=== PATIENT | male | born 1950 | race Caucasian/White ===

== ENCOUNTER 2020-10-22 15:46 | Emergency (ER) | payer MEDICARE, OTHER ==
[~2020-10-22 15:46] MED LIST: HYTRIN1 MG PO; POTASSIUM CHLO10 MEQ PO; TAMSULOSIN HCL0.4 MG PO; ZESTORETIC 20-1 EAC1 PO
[2020-10-22 16:25] LABS: BASOPHIL 0.6 % (0-2); EOSINOPHIL 5.8 % (0-7); HCT 40.3 % (42.0-52.0); HGB 13.8 g/dl (13.2-18.0); LYMPHOCYTE 23.7 % (15-48); MCH 30.4 pg (25.0-31.0); MCHC 34.2 g/dL (32.0-36.0); MCV 88.8 fL (78.0-100.0); MONOCYTE 9.1 % (0-12); MPV 9.5 fL (6.0-9.5); NEUTROPHIL 60.5 % (41-80); NRBC 0; PLT 167 K/uL (150-400); RBC 4.54 M/uL (4.70-6.00); RDW 13.4 % (11.5-14.0); WBC 6.6 K/uL (4.0-10.5)
[2020-10-22 16:32] LABS: ALBUMIN 3.7 g/dL (3.4-5.0); BILIRUBIN - TOTAL 0.7 mg/dL (0.2-1.0); BUN/CREAT RATIO (CALC) 18.8 RATIO; CREATININE 1.12 mg/dL (0.67-1.17); GLOBULIN (CALCULATION) 4.2 g/dL; POTASSIUM 3.7 mmol/L (3.5-5.1); TOTAL PROTEIN 7.9 g/dL (6.4-8.2)
[2020-10-22] MEDS ORDERED: PEPCID AC20 MG PO (18:19)
== END 2020-10-22 18:35 | disposition home or self-care (01) ==
LOC: FER 15:46
PROVIDERS: Emergency Medicine
DX: K21.9 Gastro-esophageal reflux disease without esophagitis (principal); I10 Essential (primary) hypertension; Z88.0 Allergy status to penicillin
CPT/HCPCS: 36415; 71045; 80053; 84484; 85025; 93005

== ENCOUNTER 2021-04-29 07:06 | Emergency (ER) | payer MEDICARE, OTHER ==
[~2021-04-29 07:06] MED LIST changes: +PEPCID AC20 MG PO
[2021-04-29 08:26] LABS: BASOPHIL 0.4 % (0-2); EOSINOPHIL 1.4 % (0-7); HCT 37.6 % (42.0-52.0); HGB 12.7 g/dl (13.2-18.0); MCH 30.5 pg (25.0-31.0); MCHC 33.8 g/dL (32.0-36.0); MCV 90.2 fL (78.0-100.0); MONOCYTE 6.1 % (0-12); MPV 9.6 fL (6.0-9.5); NEUTROPHIL 81.7 % (41-80); NRBC 0; PLT 146 K/uL (150-400); RBC 4.17 M/uL (4.70-6.00); RDW 13.3 % (11.5-14.0)
[2021-04-29 08:30] LABS: INR 1.16 (0.9-1.2); PROTHROMBIN TIME 14.2 SECONDS (11.8-13.4); PTT 35.1 SECONDS (24.4-34.7)
[2021-04-29 08:33] LABS: BILIRUBIN NEGATIVE (NEGATIVE); BLOOD 3+ Ery/uL (NEGATIVE); CLARITY CLOUDY (CLEAR); COLOR RED (YELLOW); GLUCOSE (U) NORMAL (NORMAL); LEUKOCYTES NEGATIVE Leu/uL (NEGATIVE); NITRITE NEGATIVE (NEGATIVE); PROTEIN 2+ mg/dL (NEGATIVE); SPECIFIC GRAVITY >=1.030 (1.001-1.030); UROBILINOGEN 0.2 mg/dL (0.2-1.0)
[2021-04-29 08:38] LABS: AMORPHOUS URATES CRYSTALS MODERATE; BACTERIA TRACE; URINARY RBC TNTC; URINARY WBC RARE
[2021-04-29 08:54] LABS: BILIRUBIN - TOTAL 0.5 mg/dL (0.2-1.0); BUN/CREAT RATIO (CALC) 9.6 RATIO; CREATININE 2.51 mg/dL (0.67-1.17); GLOBULIN (CALCULATION) 4.2 g/dL; POTASSIUM 3.7 mmol/L (3.5-5.1); TOTAL PROTEIN 7.2 g/dL (6.4-8.2)
[2021-04-29] MEDS ORDERED: CIPRO250 M1 PO (14:35)
== END 2021-04-29 15:55 | disposition home or self-care (01) ==
LOC: FER 07:06
PROVIDERS: Emergency Medicine
DX: N40.1 Benign prostatic hyperplasia with lower urinary tract symptoms (principal); R33.8 Other retention of urine; N17.8 Other acute kidney failure; Z88.0 Allergy status to penicillin
CPT/HCPCS: 36415; 80053; 81001; 85025; 85610; 85730; 87088; J0696; J7030

== ENCOUNTER 2021-05-01 10:02 | Emergency (ER) | payer MEDICARE, OTHER ==
[~2021-05-01 10:02] MED LIST changes: +CIPRO250 M1 PO
== END 2021-05-01 13:14 | disposition home or self-care (01) ==
LOC: FER 10:02
DX: R33.9 Retention of urine, unspecified (principal); Z96.0 Presence of urogenital implants; Z88.0 Allergy status to penicillin
CPT/HCPCS: 99283